=== PATIENT | male | born 1965 | race Caucasian/White ===

== ENCOUNTER 2018-12-28 07:18 | Emergency (ER) | payer OTHER ==
[~2018-12-28] VITALS: Ht 162.6 cm; Wt 74.4 kg
[2018-12-28 07:22] VITALS: Ht 162.6 cm; Wt 74.4 kg
[2018-12-28 08:36] LABS: BASOPHIL % 0.2 % (0-2); PLATELET COUNT 184 x10^3mcL (130-400); RED CELL DISTRIBUTION WIDTH 12.7 % (11.5-14.5)
[2018-12-28 08:39] LABS: CALCIUM 9.3 mg/dL (8.5-10.1); CARBON DIOXIDE 30.8 mmol/L (21-32); CHLORIDE SERUM 102 mmol/L (98-107); CREATININE SERUM 0.9 mg/dL (0.7-1.3); GFR1 > 60 mL/min; GLUCOSE SERUM 315 mg/dL (74-106); POTASSIUM SERUM 4.3 mmol/L (3.5-5.1); SODIUM SERUM 137 mmol/L (136-145)
[2018-12-28 08:44] LABS: ALBUMIN 3.6 g/dL (3.4-5.0); ALKALINE PHOSPHATASE 80 U/L (46-116); ALT/SGPT 26 U/L (16-63); AST/SGOT 1 U/L (15-37); BILIRUBIN TOTAL 0.4 mg/dL (0.20-1.00); TOTAL PROTEIN, SERUM 6.9 g/dL (6.4-8.2)
[2018-12-28 09:23] VITALS: BP 128/79
== END 2018-12-28 09:23 | disposition home or self-care (01) ==
LOC: ED 07:18
PROVIDERS: Emergency Medicine
DX: J34.0 Abscess, furuncle and carbuncle of nose (principal); L73.9 Follicular disorder, unspecified; E11.9 Type 2 diabetes mellitus without complications
CPT/HCPCS: 82962; J0696; J1885; J2270; J2405